=== PATIENT | male | born 1965 | race African-American/Black ===

== ENCOUNTER 2018-01-06 15:17 | Emergency (ER) | payer BC, MEDICAID ==
[~2018-01-06] VITALS: Ht 177.8 cm; Wt 83.0 kg
[2018-01-06 15:24] VITALS: BP 137/59
== END 2018-01-06 17:10 | disposition left against medical advice (07) ==
LOC: ER 16:43
DX: L29.9 Pruritus, unspecified (principal)
CPT/HCPCS: 99281